=== PATIENT | male | born 1965 | race Caucasian/White ===

== ENCOUNTER 2018-05-20 16:55 | Inpatient (IN) ==
[2018-05-20] MEDS ORDERED: HUMULIN R SUBQ ONE (17:35)
[2018-05-20 17:46] LABS: BASO# 0.04 X1000 (0.0-0.2); BASO% 0.4 % (0.0-0.8); EOS# 0.26 X1000 (0.0-0.7); EOS% 2.5 % (0.0-10.0); HEMATOCRIT 32.7 % (42.0-52.0); HEMOGLOBIN 11.9 g/dL (14.0-18.0); IMM GRAN# 0.01 X1000 (0.0-0.04); IMM GRAN% 0.1 % (0.0-0.5); LYMPH# 2.31 X1000 (1.2-3.4); LYMPH% 22.5 % (20.5-51.1); MCH 29.2 PG (27-31); MCHC 36.4 g/dL (33-37); MCV 80.1 FL (81-99); MONO% 6.8 % (1.7-9.3); MPV 10.4 FL (7.4-10.4); NEUT# 6.94 X1000 (1.4-6.5); NEUT% 67.7 % (42.2-75.2); PLT 330 X1000 (130-400); RBC 4.08 XMIL (4.7-6.1); RDW 13.5 % (11.5-14.5); WBC 10.26 X1000 (4.8-10.8)
[2018-05-20 17:54] LABS: BILIRUBIN URINE NEGATIVE (NEGATIVE); BLOOD URINE NEGATIVE (NEGATIVE); CLARITY CLEAR (CLEAR); COLOR YELLOW; KETONE URINE 2+(Moderate) mg/dL (NEGATIVE); LEUKOCYTES URINE NEGATIVE (NEGATIVE); NITRITE URINE NEGATIVE (NEGATIVE); PROTEIN URINE TRACE mg/dL (NEGATIVE); SP GRAVITY URINE 1.005; UROBILINOGEN URINE NORMAL
[2018-05-20 17:57] LABS: BE -7.2 mmoll (-2.0-2.0); BLOOD TYPE VENOUS; HCO3-(ACT) 19.3 mmoll (22-27); PO2(98.6) 124 mmHg (30-55); SAMPLE BLOOD; SAO2 99.2 % (40.0-85.0)
[2018-05-20 18:00] LABS: ESTIMATED GFR > 60
[2018-05-20 18:01] LABS: pH(98.6) 7.13 (7.32-7.43)
[2018-05-20 18:01] LABS: URINE BACTERIA 1+ /HFP; URINE CAST NONE SEEN /LPF; URINE CRYSTAL NONE SEEN /HPF; URINE EPITHELIAL CELLS <10 /HPF (<10); URINE SOURCE CLEAN CATCH; URINE WBC <10 /HPF (<10); URINE YEAST NONE SEEN /HPF
[2018-05-20 18:02] LABS: PCO2(98.6) 69 mmHg (40-60)
[2018-05-20] MEDS ORDERED: NS 1,000 ML IV ONE (18:02)
[2018-05-20 18:19] LABS: AGAP 13; ALBUMIN 3.8 g/dL (3.5-5.0); ALKALINE PHOSPHATASE 153 U/L (32-122); BUN 28 mg/dL (8-22); CALCIUM 8.8 mg/dL (8.8-10.2); CHLORIDE 95 mmol/L (98-107); COSMO 289; CREATININE 1.1 mg/dL (0.7-1.2); GLUCOSE 445 mg/dL (70-104); GOT 15 U/L (10-34); GPT 29 U/L (10-44); POTASSIUM 3.8 mmol/L (3.5-5.1); SODIUM 132 mmol/L (136-145); TCO2 25 mmol/L (25-35); TOTAL PROTEIN 6.9 g/dL (6.3-8.3)
[2018-05-20] MEDS ORDERED: HUMULIN R (PARKWAY) ONE (18:52)
[2018-05-20] MEDS ORDERED: HUMULIN R (PARKWAY) 100 UNITS in NS 100 ML IV SCH (19:00)
[2018-05-20] MEDS ORDERED: TYLENOL PO PRN (19:56)
[2018-05-20] MEDS ORDERED: ZOFRAN IV PRN (19:56)
[2018-05-20] MEDS ORDERED: NS 1,000 ML ONE (20:18)
[2018-05-20] MEDS: SODIUM CHLORIDE 0.9% INJ SCH (20:28)
[2018-05-20] MEDS: PROTONIX IV SCH (20:28)
[2018-05-20] MEDS: NS 1,000 ML IV SCH (20:34)
[2018-05-20 20:53] LABS: AGAP 14; ALBUMIN 3.5 g/dL (3.5-5.0); ALKALINE PHOSPHATASE 141 U/L (32-122); BUN 25 mg/dL (8-22); CALCIUM 8.5 mg/dL (8.8-10.2); CHLORIDE 99 mmol/L (98-107); COSMO 283; ESTIMATED GFR > 60; GLUCOSE 289 mg/dL (70-104); GOT 14 U/L (10-34); GPT 25 U/L (10-44); POTASSIUM 3.7 mmol/L (3.5-5.1); SODIUM 134 mmol/L (136-145); TCO2 21 mmol/L (25-35); TOTAL PROTEIN 6.3 g/dL (6.3-8.3)
[2018-05-20] MEDS ORDERED: HUMALOG SUBQ SCH (21:00)
--- NOTE | 2018-05-20 22:22 | HISTORY AND PHYSICAL ---
CHIEF COMPLAINT: Generalized weakness. HISTORY OF PRESENT ILLNESS: The patient is a 53-year-old male, who presented to [facility] ER secondary to generalized weakness and somewhat confusion. The patient notes he does not remember Sunday or Sunday. Currently, today is Sunday. He does remember being at home Sunday. Denies any illicit substance use. Denies any fevers, chills, cough, congestion. Denies headaches, blurred vision. ALLERGIES: Penicillin. MEDICATIONS: Insulin. REVIEW OF SYSTEMS: Patient notes he has been weak, dizzy. He has been confused for the past 2 days. As noted, denies any real knowledge of the events of the past 2 days. Denies fevers, chills. Denies dysuria, urinary frequency, urgency, hesitancy. Denies polyuria, polydipsia. Denies cough, congestion, shortness of breath. PAST MEDICAL HISTORY: Diabetes, CVA, history of cholecystectomy. FAMILY HISTORY: Positive for hypertension. SOCIAL HISTORY: Patient lives at home. Denies any illicit substance use. PHYSICAL EXAMINATION: VITAL SIGNS: Reviewed. Temperature 97, pulse 83, respiratory 18, BP 131/56, saturating 98% on room air. GENERAL: Patient is awake, alert. Currently, he is oriented x3. He is very pleasant to talk with. HEENT: Normocephalic. NECK: Supple. CARDIOVASCULAR: Regular rate. No murmurs. CHEST: Clear, nonlabored. ABDOMEN: Soft, nondistended, nontender. EXTREMITIES: Moves all extremities. ASSESSMENT: 1. Hyponatremia. 2. Hyperglycemia with blood sugar of 445. 3. Mild elevated alkaline phosphatase. 4. Volume depletion. 5. Hyperglycemia with a positively small acetone, although carbon dioxide on CMP currently is stable. 6. Hypertension. 7. Others. PLAN: We will admit patient to ICU. Unsure that he is in DKA. Currently, his CO2 on CMP is 25. Does have a positive acetone. His ABG is venous gas, not sure if he is in DKA. We will continue IV fluids, insulin as needed. Hopefully, can improve and discharge home soon. cc: Vin Torres MD
--- NOTE | 2018-05-20 23:52 | PROVIDER DOCUMENTATION ---
This chart was entered by Ellie Croft Scribe, acting as scribe for Mak Can CRNP. HPI-Syncope/Dizziness - General Chief Complaint: Dizziness Stated Complaint: DIZZY/WEAK Time Seen by Provider: 05/20/18 18:01 Source: patient Allergies/Adverse Reactions: Patient Allergies Allergy/AdvReac Type Severity Reaction Status Date / Time Penicillins AdvReac Unknown Verified 05/20/18 17:07 Home Medications: Home Medication List Medication Instructions Recorded Confirmed Last Taken Type CefDINIR [Omnicef] 300 mg PO BID #6 cap 01/31/18 Unknown Rx Insulin Novolog 70/30 [Novolog Mix 30 unit SQ BID #20 insuln.pen 01/31/18 Unknown Rx 70/30] - History of Present Illness-Syncope/Dizzy Nature of Presenting Problem: pt is a 53 yr old male presenting with 4 day complaint of intermittent dizzines s, memory loss and incontinence. pt also reports numbness to hands and multiple recent falls. pt recent hx of DKA admission. pt denies chest pain or syncope, no fever, nausea or vomiting Recently Seen Here or By Another Healthcare Provider: No - Dizziness Severity in ED: reports: moderate Dizziness Related Current/Associated Symptoms: reports: weakness, dizzy, sense of confusion. denies: nausea/vomiting, headache, headache, blurred vision, ringing/roaring in ears Any recent trauma/injury?: reports: none Modifying Factors: improves with: nothing Patient usually:: reports: uses a cane Review of Systems - Adult - REVIEW OF SYSTEMS - ADULT Constitutional: reports: owen. denies: chills, fever Eyes: denies: blurred vision, double vision Ears, Nose, Mouth & Throat: denies: ear pain, sinus problem, throat pain Cardiovascular: denies: chest pain, palpitations, syncope Respiratory: denies: cough, shortness of breath Gastrointestinal: denies: abdominal pain, diarrhea, nausea, vomiting Genitourinary: reports: no symptoms reported Musculoskeletal: denies: back pain, joint pain, neck pain Integumentary: reports: no symptoms reported Neurological: reports: dizziness/vertigo, other (confusion, memory loss). denies: headache/migraines, syncope Psychiatric: reports: no symptoms reported Endocrine: reports: no symptoms reported Hematologic/Lymphatic: reports: no symptoms reported Allergic/Immunologic: reports: no symptoms reported All Other Systems: Reviewed and Negative Past History - Adult - PAST MEDICAL HISTORY-ADULT Review of Records: reports: Old Records Reviewed, Nursing Assessment Review, Medications Reviewed, Social history reviewed & non-contributory. Major Childhood Illnesses: reports: denies history Cardiovascular: reports: denies history Respiratory: reports: denies history Gastrointestinal: reports: denies history Obstetrical/Gynecological: reports: denies history Genitourinary: reports: denies history Musculoskeletal: reports: denies history Neurological: reports: CVA Endocrine/Immune: reports: Diabetes Other Conditions: reports: denies history - PRIOR SURGERIES/PROCEDURES Surgical/Procedure History: reports: cholecystectomy - IMMUNIZATION STATUS Childhood Immunizations: See Nurse Assessment Flu Vaccine: See Nurse Assessment - FAMILY HISTORY Family History: reviewed, not pertinent Physical Exam-General - PHYSICAL EXAM-ADULT Initial Vital Signs Reviewed: Yes - CONSTITUTIONAL General Appearance: alert, no apparent distress, thin - EYES Eyes: PERRL/EOMI - HEAD, EARS, NOSE, MOUTH & THROAT HENMT: normocephalic/atraumatic, normal ENT inspection. negative: moist mucous membranes (dry mucosa) - NECK Neck: non-tender, full range of motion, supple, normal inspection - RESPIRATORY Respiratory: chest non-tender, lungs clear, normal breath sounds - CARDIOVASCULAR Cardiovascular: normal peripheral pulses, regular rate, rhythm, no edema - GASTROINTESTINAL (ABDOMEN) Abdominal Exam: normal bowel sounds, non tender, soft - LYMPHATIC Lymphatic: no adenopathy - MUSCULOSKELETAL Back Exam: normal inspection, no CVA tenderness, no vertebral tenderness Extremity: normal range of motion, non-tender, normal gait, normal inspection - SKIN Integumentary: normal color, normal turgor, warm/dry - NEUROLOGIC Neurologic: grossly normal, no motor/sensory deficits - PSYCHIATRIC Psych/Mental Status: normal mood/affect, normal thought content, normal thought process, oriented x 3 Progress - PLAN OF CARE/RESULTS Progress/Plan/Lab Results: Vital Signs - 8 hr 05/20/18 17:00 05/20/18 17:33 Temperature 97.7 F Pulse Rate 83 Pulse Rate [Sitting] 86 Pulse Rate [Standing] 90 Pulse Rate [Supine] 88 Respiratory Rate 16 Blood Pressure 131/56 Blood Pressure [Sitting] 152/83 Blood Pressure [Standing] 116/67 Blood Pressure [Supine] 132/80 O2 Sat by Pulse Oximetry 98 Laboratory Results - last 24 hr 05/20/18 05/20/18 05/20/18 17:15 17:15 17:15 WBC 10.26 RBC 4.08 L Hgb 11.9 L Hct 32.7 L MCV 80.1 L MCH 29.2 MCHC 36.4 RDW Std Deviation 13.5 Plt Count 330 MPV 10.4 Immature Gran % (Auto) 0.1 Neut % (Auto) 67.7 Lymph % (Auto) 22.5 [place] % (Auto) 6.8 Eos % (Auto) 2.5 Baso % (Auto) 0.4 Immature Gran # (Auto) 0.01 Neut # (Auto) 6.94 H Lymph # (Auto) 2.31 [place] # (Auto) 0.70 H Eos # (Auto) 0.26 Baso # (Auto) 0.04 Specimen Type VBG pH VBG pCO2 VBG pO2 VBG HCO3 VBG O2 Saturation VBG Base Excess Sodium 132 L Potassium 3.8 Chloride 95 L Carbon Dioxide 25 Anion Gap 13 BUN 28 H Creatinine 1.1 Estimated GFR/1.73 m2 > 60 BUN/Creatinine Ratio 25 Glucose 445 H* POC Glucose Calculated Osmolality 289 Calcium 8.8 Total Bilirubin 0.20 AST 15 ALT 29 Alkaline Phosphatase 153 H Total Protein 6.9 Albumin 3.8 Globulin 3.0 Albumin/Globulin Ratio 1.0 Urine Source CLEAN CATCH Urine Color YELLOW Urine Clarity CLEAR Urine pH 5.0 Ur Specific Gordon 1.005 Urine Protein TRACE A Urine Ketones 2+(Moderate) A Urine Blood NEGATIVE Urine Nitrite NEGATIVE Urine Bilirubin NEGATIVE Urine Urobilinogen NORMAL Urine Microscopic RBC Not Reportable Urine WBC NEGATIVE Urine Microscopic WBC <10 Ur Epithelial Cells <10 Urine Crystals NONE SEEN Urine Bacteria 1+ Urine Casts NONE SEEN Urine Yeast NONE SEEN Urine Glucose 3+(500 mg/dL) A Acetone Level 05/20/18 05/20/18 05/20/18 17:15 17:21 17:38 WBC RBC Hgb Hct MCV MCH MCHC RDW Std Deviation Plt Count MPV Immature Gran % (Auto) Neut % (Auto) Lymph % (Auto) [place] % (Auto) Eos % (Auto) Baso % (Auto) Immature Gran # (Auto) Neut # (Auto) Lymph # (Auto) [place] # (Auto) Eos # (Auto) Baso # (Auto) Specimen Type VENOUS VBG pH 7.13 L* VBG pCO2 69 H* VBG pO2 124 H VBG HCO3 19.3 L VBG O2 Saturation 99.2 H VBG Base Excess -7.2 L Sodium Potassium Chloride Carbon Dioxide Anion Gap BUN Creatinine Estimated GFR/1.73 m2 BUN/Creatinine Ratio Glucose POC Glucose 395 H Calculated Osmolality Calcium Total Bilirubin AST ALT Alkaline Phosphatase Total Protein Albumin Globulin Albumin/Globulin Ratio Urine Source Urine Color Urine Clarity Urine pH Ur Specific Gordon Urine Protein Urine Ketones Urine Blood Urine Nitrite Urine Bilirubin Urine Urobilinogen Urine Microscopic RBC Urine WBC Urine Microscopic WBC Ur Epithelial Cells Urine Crystals Urine Bacteria Urine Casts Urine Yeast Urine Glucose Acetone Level SMALL A Orders Category Date Time Status ED: Orthostatic Vital Signs (E DIRECTED Care 05/20/18 17:07 Active FSBS [Finger Stick Blood Sugar (ED)] DIRECTED Care 05/20/18 17:07 Active Nursing- Obtain EKG ONCE Care 05/20/18 17:09 Active Saline Loc NOW Care 05/20/18 18:13 Completed ACETONE SERUM [CHEM] Stat Lab 05/20/18 17:15 Completed CBC WITH DIFF [HEME] Stat Lab 05/20/18 17:15 Completed CMP [COMPREHENSIVE METABOLIC PANEL] [CHEM] Stat Lab 05/20/18 17:15 [address] BLOOD G[address] [RESP] Routine Lab 05/20/18 17:38 Completed ua [URINALYSIS PL W/POSS RFLX CULT] [URINALYSIS] Stat Lab 05/20/18 17:15 Comp leted 0.9% Sodium Chloride Inj [Ns] 1,000 ml Med 05/20/18 18:02 Discontinued IV 999 mls/hr 0.9% Sodium Chloride Inj [Ns] 100 ml Med 05/20/18 19:00 Ordered Insulin Human Regular (Mclain [Humulin R (Mclain)] 100 units IV 6 mls/hr Insulin Human Regular (Mclain [Humulin R (Mclain)] Med 05/20/18 18:52 Discontinued 10 units .ROUTE .STK-MED ONE Insulin Human Regular [Humulin R] Med 05/20/18 17:35 Discontinued 10 unit SUBQ NOW ONE Transfer/Admit Order [TRANSFER] Routine Transfer 05/20/18 19:01 Ordered Result Diagrams: 05/20/18 17:15 05/20/18 17:15 - CONSULTS/PCP/HOSPITALIST Notification #1 *Consult/PCP/Hospitalist*: Dr. Torres Time Discussed: 19:02 Consult Disposition: Will see in ED, Admit Departure - Departure Date of Disposition Decision: 05/20/18 Time of Disposition Decision: 19:02 DIAGNOSIS: DKA (diabetic ketoacidoses), Dehydration Disposition: ADMITTED INPATIENT 09 Certified Medical Emergency: Emergent Condition: Stable Referrals and Follow-Ups: None,PCP [Primary Care Provider] - - Critical Care Note This patient required my direct & personal management of CC.: No Attestation - Physician/ LESLIE Attestation Patient care was provided by Advanced Practice Provider:: Yes Advanced Practice Provider:: Mak Can Advanced Practice Provider documentation review:: The Mid-level provider documen tation, treatment plan and medical decision making was reviewed by the physician who agrees with all treatment and medical decision making by the MLP. The physician spent face to face time with patient:: No Advanced Practice Provider documentation review:: Supervising physician onsite and consulted in the evaluation and care of this patient. The physician did not have a face to face encounter with the patient. This chart was documented by the indicated scribe, (Ellie Croft Scribe) and accurately reflects the services I performed and decisions made by me, Mak Can CRNP, as attested by the provider's signature.
[2018-05-21] MEDS: NS 1,000 ML IV SCH ×3 (04:08→20:21)
[2018-05-21 06:18] LABS: HEMATOCRIT 30.7 % (42.0-52.0); HEMOGLOBIN 10.8 g/dL (14.0-18.0); MCH 28.4 PG (27-31); MCHC 35.2 g/dL (33-37); MCV 80.8 FL (81-99); MPV 10.2 FL (7.4-10.4); RBC 3.8 XMIL (4.7-6.1); RDW 13.6 % (11.5-14.5); WBC 7.6 X1000 (4.8-10.8)
[2018-05-21 06:35] LABS: AGAP 10; ALBUMIN 3.1 g/dL (3.5-5.0); ALKALINE PHOSPHATASE 121 U/L (32-122); BUN 18 mg/dL (8-22); CALCIUM 8.1 mg/dL (8.8-10.2); CHLORIDE 103 mmol/L (98-107); COSMO 277; CREATININE 0.8 mg/dL (0.7-1.2); ESTIMATED GFR > 60; GLUCOSE 61 mg/dL (70-104); GOT 14 U/L (10-34); GPT 21 U/L (10-44); MAGNESIUM 1.6 mg/dL (1.5-2.7); POTASSIUM 3.2 mmol/L (3.5-5.1); SODIUM 139 mmol/L (136-145); TCO2 26 mmol/L (25-35); TOTAL PROTEIN 6.1 g/dL (6.3-8.3)
[2018-05-21] MEDS: HUMALOG (PARKWAY) SUBQ SCH ×4 (06:45→21:43)
[2018-05-21] MEDS: SODIUM CHLORIDE 0.9% INJ SCH (08:29)
[2018-05-21] MEDS: PROTONIX IV SCH ×2 (08:29→20:21)
--- NOTE | 2018-05-21 09:23 | EKG Report ---
Test Performed on : 05/20/2018 5:17:28 PM Test Reason : ER Blood Pressure : / mmHG Vent. Rate : 080 BPM Atrial Rate : 080 BPM P-R Int : 134 ms QRS Dur : 106 ms QT Int : 408 ms P-R-T Axes : 055 070 053 degrees QTc Int : 470 ms Normal sinus rhythm. Possible Left atrial enlargement Borderline ECG When compared with ECG of 26-JAN-2018 10:56, Vent. rate has decreased BY [address] elevation now present in Inferior leads T wave inversion no longer evident in Inferior leads T wave amplitude has decreased in Anterior leads Nonspecific T wave abnormality, improved in Lateral leads Unconfirmed Result
--- NOTE | 2018-05-21 19:57 | PROGRESS NOTE ---
DATE: 05/21/2018 SUBJECTIVE: Patient notes overall he is feeling a little bit better. Denies any current complaints. Denies any confusion since he has been in the hospital. Has not really been out of bed. PHYSICAL EXAMINATION: Vital Signs: Temperature 97.9 degrees, pulse 60, respiratory 18, BP 106/47. General: Patient is awake. He is very pleasant to talk with. HEENT: Normocephalic. Neck: Supple. Cardiovascular: Regular rate. No murmurs. Chest: Clear, nonlabored. Abdomen: Soft, nondistended, nontender. Extremities: Moves all extremities. ASSESSMENT: 1. Hyponatremia. We will continue to follow. 2. Hyperglycemia. Actually, now blood sugars are down low into the 60s early this morning. This is most likely secondary to medication that was given to him by the emergency room, as well as the fact that he has not eaten since last night or breakfast this morning. 3. Diabetes. 4. Elevated alkaline phosphatase. 5. Volume depletion. 6. Hypertension. PLAN: We will continue to follow patient's blood sugars and blood pressures. Further orders as needed. We will advance his diet. cc: Vin Torres MD
[2018-05-22] MEDS: NS 1,000 ML IV SCH (04:51)
[2018-05-22 06:00] LABS: BASO# 0.04 X1000 (0.0-0.2); BASO% 0.7 % (0.0-0.8); EOS# 0.22 X1000 (0.0-0.7); HEMATOCRIT 31.2 % (42.0-52.0); HEMOGLOBIN 10.8 g/dL (14.0-18.0); IMM GRAN# 0.01 X1000 (0.0-0.04); IMM GRAN% 0.2 % (0.0-0.5); LYMPH# 2.55 X1000 (1.2-3.4); LYMPH% 46.7 % (20.5-51.1); MCH 28.2 PG (27-31); MCHC 34.6 g/dL (33-37); MCV 81.5 FL (81-99); MONO# 0.37 X1000 (0.11-0.59); MONO% 6.8 % (1.7-9.3); MPV 10.6 FL (7.4-10.4); NEUT# 2.27 X1000 (1.4-6.5); NEUT% 41.6 % (42.2-75.2); PLT 273 X1000 (130-400); RBC 3.83 XMIL (4.7-6.1); RDW 13.4 % (11.5-14.5); WBC 5.46 X1000 (4.8-10.8)
[2018-05-22] MEDS: HUMALOG (PARKWAY) SUBQ SCH ×2 (06:08→12:02)
[2018-05-22 06:29] LABS: AGAP 11; ALBUMIN 3.3 g/dL (3.5-5.0); ALKALINE PHOSPHATASE 129 U/L (32-122); BUN 10 mg/dL (8-22); CHLORIDE 98 mmol/L (98-107); COSMO 281; CREATININE 0.7 mg/dL (0.7-1.2); ESTIMATED GFR > 60; GLUCOSE 284 mg/dL (70-104); GOT 32 U/L (10-34); GPT 31 U/L (10-44); POTASSIUM 3.8 mmol/L (3.5-5.1); SODIUM 136 mmol/L (136-145); TCO2 27 mmol/L (25-35); TOTAL PROTEIN 6.3 g/dL (6.3-8.3)
[2018-05-22] MEDS: PROTONIX IV SCH (09:20)
[2018-05-22] MEDS: SODIUM CHLORIDE 0.9% INJ SCH (09:20)
--- NOTE | 2018-05-22 11:15 | ED EKG INTERP ---
This chart was entered by Ellie Croft Scribe, acting as scribe for Lex Tadeo MD. EKG Interpretation - EKG Time of EKG reading by physician:: 17:23 EKG Read and Signed by:: Lex Tadeo EKG Interpretation (*Must complete 3 of following elements*): Abnormal (poss right atrial enlargement) Rate: 80 Rhythm: nsr [place]: normal QRS: normal VT Interval: normal ST Wave: normal Attestation - Physician/ LESLIE Attestation Patient care was provided by Advanced Practice Provider:: Yes Advanced Practice Provider documentation review:: The Mid-level provider documentation, treatment plan and medical decision making was reviewed by the physician who agrees with all treatment and medical decision making by the MLP. The physician spent face to face time with patient:: No Advanced Practice Provider documentation review:: Supervising physician onsite and consulted in the evaluation and care of this patient. The physician did not have a face to face encounter with the patient. This chart was documented by the indicated scribe, (Ellie Croft Scribe) and accurately reflects the services I performed and decisions made by me, Lex Tadeo MD, as attested by the provider's signature.
[2018-05-22] MEDS ORDERED: APRESOLINE PO ONE (13:31)
[2018-05-22 14:27] VITALS: BP 178/86
--- NOTE | 2018-05-23 00:38 | PROGRESS NOTE ---
DATE: 05/20/2018 CHIEF COMPLAINT: Fatigue. SUBJECTIVE: The patient notes overall he is starting to feel better. He states he has really not been out of bed. Denies any chest pain or palpitations. Denies any fevers or chills. OBJECTIVE: Vital Signs: Temperature is 98, pulse 78, blood pressure 156/87-200/100. General: The patient is awake, currently in no respiratory distress. HEENT: Normocephalic. Neck: Supple. Cardiovascular: Regular rate. No murmurs chest. Chest: Clear and nonlabored. Abdomen: Soft, nondistended, and nontender. Extremities: Moves all extremities. ASSESSMENT: 1. Hypernatremia. 2. Hyperglycemia. 3. Mild elevated alkaline phosphatase. 4. Volume depletion. 5. Others. PLAN: We will continue the patient in the hospital. We will follow his blood pressures. Hopefully his symptoms will improve and he can be discharged home later this afternoon. cc: Vin Torres MD
--- NOTE | 2018-05-23 14:03 | DISCHARGE SUMMARY ---
ADMISSION DATE: 05/20/2018 DISCHARGE DATE: 05/22/2018 DIAGNOSES: 1. Hyponatremia. 2. Hyperglycemia. 3. Hypertension. 4. Diabetes mellitus. 5. Volume depletion. DIAGNOSTICS: 1. Microbiology: Blood cultures x2 revealed no growth after 48 hours. 2. Urine culture revealed mixed ondina. HOSPITAL COURSE: Mr. Galeana came into the hospital with generalized weakness and somewhat confusion. He was found to have a sodium of 132 at this time with a blood sugar of 445. He did have a small acetone, although the CO2 on the CMP was 25. He was admitted to ICU, treated with DKA protocol with rehydration. Sodium is 136. CO2 has remained stable at 25 to 27. His blood sugars have ranged in the 170 to 300 range by fingerstick. He did have some episodes of blood sugars in the 60s early in the morning on his 1st morning after admission. At that time he had been NPO after midnight and had medications in the emergency room. He had no further episodes of hypoglycemia. We are he was placed on Novolin 70/30 once insulin drip was discontinued with 30 units in the morning and 15 units at night which he will be discharged on. Blood pressure's over the 48 hours prior to discharge were primarily in the 140s to 160s over 70s and 80s. His blood pressure did increase to ranging from the 180s to 200s over the 90s during the morning prior to discharge. He was given hydralazine. Blood pressure did decrease to 170s over 80s. Thankfully, he was ready for discharge. DISCHARGE VITAL SIGNS: Blood pressure is 178/86 with a heart rate of 83, respirations 20, temperature is 98 degrees oral with room air sat 98 to 100%. Cardiovascular regular rate and rhythm. S1 and S2 appreciated. Pulmonary breath sounds clear with no increased work of breathing noted. Gastrointestinal: Abdomen is soft, nontender, nondistended with bowel sounds in all 4 quadrants. Extremities: No clubbing, cyanosis, or edema. Calves are nontender bilateral with peripheral pulses palpable x4 extremities. Neurologic: He is alert and oriented x3. DISCHARGE MEDICATIONS: 1. NovoLog 70/30, 30 units every .a.m. 15 units every p.m. 2. Hydralazine 25 mg p.o. every 12 hours. FOLLOWUP: 1. He is to follow up with his primary care physician for blood pressure management as well as diabetes management. 2. He has been instructed to return to the emergency room for recurring symptoms for any syncope, dizziness, chest pain, palpitations, shortness of breath, cough, temperature greater than 101, any nausea, vomiting, diarrhea, constipation, black or bloody vomitus or stools, for blood sugars or for any questions or concerns that he may have. 3. He is being discharged home in stable condition with family members. TIME SPENT: This is a greater than 30 minute discharge. Dictated by CESAR Maria for Vin Torres MD cc: CESAR Maria MD
== END 2018-05-22 14:55 | disposition home or self-care (01) | DRG 638 ==
LOC: P.ED 16:55 → P.ICU 20:27 → P.MEDSURG 05-21 13:29
PROVIDERS: ATTEND Family Medicine
CPT/HCPCS: 36415; 80053; 81001; 82009; 82805; 82948; 83735; 84443; 85025; 85027; 87040; 87088; 93005; 96374; 99285; A9270; C9113; J1815; J7030; S0164; XXXXX